=== PATIENT | male | born 1940 | race Caucasian/White ===

== ENCOUNTER 2017-02-09 19:14 | Inpatient (IN) ==
[2017-02-09] MEDS ORDERED: Melatonin 3 MG TABLET PO ONE (22:30)
[2017-02-10] MEDS: Gabapentin 100 MG CAPSULE PO SCH ×2 (04:26→23:10)
[2017-02-10] MEDS ORDERED: *HR* Morphine Sulfate SR (12 HR) 15 MG TABLET.ER PO SCH (06:00)
[2017-02-10] MEDS: *HR* OxyCODONE Immed Rel 15 MG TABLET PO PRN (08:04)
[2017-02-10] MEDS ORDERED: Ondansetron ODT 4 MG TAB.RAPDIS PO PRN (08:56)
[2017-02-10] MEDS: rifAMPin 150 MG CAPSULE PO SCH ×2 (10:13→17:23)
[2017-02-10] MEDS: Lactobacillus 1 EACH CAP.SPRINK PO SCH ×2 (10:14→23:12)
[2017-02-10] MEDS: Furosemide 40 MG TABLET PO SCH (10:14)
[2017-02-10] MEDS: *HR* Morphine Sulfate SR (12 HR) 30 MG TABLET.ER PO SCH ×2 (10:14→23:13)
[2017-02-10] MEDS: Cholecalciferol (D-3) 1,000 UNIT TABLET PO SCH (10:14)
[2017-02-10] MEDS: Chlorhexidine Rinse 15 ML MOUTHWASH MM SCH ×2 (10:37→23:13)
[2017-02-10] MEDS: Vancomycin 1,500 MG in D5% in Water 250 ML IVPB SCH (12:33)
--- NOTE | 2017-02-10 17:15 | Internal Med History&Physical ---
Date of Encounter: 02/10/17 Time of Encounter: 16:35 Assessment and Plan (1) HCAP (healthcare-associated pneumonia) Current visit: No Status: Acute We will continue antibiotics and lactobacillus ordered at [facility] discharge. (2) Peripheral neuropathy Current visit: No Status: Suspected Etiology not known. B12 and TSH levels were normal Qualifiers: Peripheral neuropathy type: polyneuropathy, unspecified Qualified Code(s): G62.9 - Polyneuropathy, unspecified (3) Gout Current visit: No Status: Chronic Will give prednisone and check uric acid level in a.m. 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 Qualifiers: Atrial fibrillation type: chronic Qualified Code(s): I48.2 - Chronic atrial fibrillation Internal Medicine - H&P: HPI Chief complaint: Pneumonia Admitted From: Hospital to Hospital Transfer Plans for Post Hospital Care: Home History of present illness: Mr. Scales is a 76 year old male who was hospitalized at [facility] February 05- for HCAP. He was treated with broad-spectrum antibiotics and discharged on oral rifampin and Levaquin with IV vancomycin. He had documented staphylococcal epidermidis bacteremia on blood cultures from 01/21/2017. He was discharged to [facility] swing bed to continue antibiotics including IV vancomycin for 14 additional days. He denies previous episodes of pneumonia. He states he is a lifelong nonsmoker and has no known chronic lung disease. Past Med Surg Social Fam HX - Past Medical History Medical history: aortic aneurysm, atrial fibrillation, cancer, coronary artery disease, hyperlipidemia, hypertension, peripheral artery disease, valvular heart disease, other Psychiatric history: no psych history - Past Surgical History Surgical History: cholecystectomy, coronary bypass (CABG), heart valve replacement - Social History Smoking Status: Never smoker Smokeless Tobacco Status: No Alcohol use: none Drug use: none - Family History Mother Living Status: Hx Family Cardiac Disorders: Yes Hx Family Respiratory Disorders: No Hx Family Cancer: Yes Hx Family GI Disorders: No Hx Family Endocrine Disorder: No Hx Family Neuromuscular Disorders: Yes Hx Family Neurologic Disorders: No Hx Family HEENT Disorders: No Hx Family Autoimmune Disorders: No Father Living Status: Hx Family Cardiac Disorders: Yes Hx Family Respiratory Disorders: No Hx Family Cancer: No Hx Family GI Disorders: No Hx Family Endocrine Disorder: No Hx Family Neuromuscular Disorders: No Hx Family Neurologic Disorders: No Hx Family HEENT Disorders: No Hx Family Autoimmune Disorders: No Internal Medicine - H&P: Meds Multivitamin/Iron/Folic Acid [Centrum Complete Multivit Tab] 1 each PO DAILY 05/16 [History] Ergocalciferol (VITAMIN D2) [Vitamin D2 (50,000 UNIT)] 50,000 unit PO MO [History] Melatonin 10 mg PO HS 11/26/15 [History] Mirtazapine 7.5 mg PO HS 11/26/15 [History] Omeprazole [PriLOSEC] 20 mg PO DAILY 11/26/15 [History] Allopurinol [Zyloprim 100 MG] 100 mg PO BID 10/31/16 [History] Furosemide [Lasix] 40 mg PO DAILY #30 tablet 12/26/16 [Rx] Ondansetron [Zofran] 4 mg PO Q8HR PRN #90 tablet 12/26/16 [Rx] Calcium Carbonate [Calcium] 600 mg PO DAILY 01/01/17 [History] Carvedilol 3.125 mg PO BID 01/01/17 [History] Aminocaproic Acid [Amicar] 250 mg PO Q8H PRN #200 solution 01/09/17 [Rx] Chlorhexidine Gluconate [Peridex] 10 ml MM DAILY #118 mouthwash 01/09/17 [Rx] Bisacodyl [Dulcolax] 10 mg PO HS PRN tab 02/02/17 [Rx] Vancomycin [Vancocin] 1 each IVPB RPHPROT vial 02/02/17 [Rx] rifAMPin [Rifadin] 300 mg PO BIDAC 14 Days 02/02/17 [Rx] Lidocaine/Prilocaine CREAM [Emla] 1 appl TP ONCE PRN 02/05/17 [History] Polyethylene Glycol 3350 [MiraLAX] 17 gm PO DAILY PRN 02/05/17 [History] Gabapentin [Neurontin] 100 mg PO HS #14 cap 02/09/17 [Rx] Lactobacillus [Culturelle] 1 each PO BID #0 02/09/17 [Rx] Lactulose [Enulose] 10 gm PO BID PRN #0 02/09/17 [Rx] Morphine Sulfate SR (12 HR) [MS Contin] 1 tab PO Q12HR #30 tab 02/09/17 [Rx] OxyCODONE Immed Rel [Roxicodone 15 MG] 15 mg PO Q4H PRN #60 tablet 02/09/17 [Rx] Vancomycin HCl in Dextrose 5 % [Vancomycin 1.5 Gram/250 ml-D5w] 1.5 gm IV DAILY #14 plast..bag 02/09/17 [Rx] levoFLOXacin [Levaquin] 750 mg PO Q48H 10 Days 02/09/17 [Rx] Allergies citalopram Adverse Reaction (Verified 02/05/17 15:37) Nausea codeine Adverse Reaction (Verified 02/05/17 15:37) See Comments Cardiac problems per . Ntchzeh-Qfg-Jad Reductase Inhibitor [Statins] Adverse Reaction (Verified 15:37) See Comments RA symptoms per . All Systems PM: A 10-system review of systems was performed and is negative for pertinent findings except as documented above in the HPI. Review of systems: Gen.: He states his weight has decreased approximately 10 pounds in the past year Cardiovascular: He denies hypertension RI heart failure angina DVT or pulmonary embolus. He states he has had aortic valve replacement. He has chronic atrial fibrillation but is not on OAC because of pancytopenia from MDS. Respiratory: As per history of present illness GI: Denies disorders of his liver gallbladder or exocrine pancreas : Denies hematuria dysuria or kidney stones. He states had left nephrectomy approximately one year ago. Neurologic: He denies large distribution strokes or seizures. He has a diagnosis of peripheral neuropathy but does not know the etiology. Endocrine: He denies diabetes or thyroid disease or hyperlipidemia Hematology/oncology: He was diagnosed with myelodysplastic syndrome earlier this year. He denies internal malignancies. He has pancytopenia from the MDS. Psychiatric: He denies anxiety depression or other mental health issues Musk skeletal: He has gout. He denies other bone joint or muscle disorders - Constitutional Vitals: Temp Pulse Resp BP Pulse Ox 99.1 F 87 16 126/75 93 02/10/17 06:37 02/10/17 06:37 02/10/17 06:37 02/10/17 06:37 02/10/17 06:37 Exam: Gen.: He is a well-developed well-nourished male lying in bed who appears in no acute distress. He denies pain or dyspnea HEENT: Head is atraumatic and normocephalic. Eyes: EOMI. There is no scleral icterus. Mouth: Mucosa is moist. Neck: Supple and nontender. There is no thyromegaly or adenopathy noted. Heart: Irregularly irregular with rate approximately 84/m. No murmurs or gallops are heard Lungs: No wheezes or crackles heard. Abdomen: There is mild tenderness to palpation. No masses or guarding are noted. Extremities: He has significant tenderness of the right first MTP joint and slight tenderness on the left first MTP joint. There is erythema and slight edema of the first MTP joints bilaterally. He has minimal DJD changes of his hands. There is no cyanosis edema or clubbing noted. Dorsalis pedis and posttibial pulses are trace to 1+ palpable bilaterally. Neurologic: Mental status: He is talkative and seems to be a fair to good historian. He does not remember some details of his history. Cranial nerves: Smile is symmetric. Forehead wrinkles bilaterally. Tongue protrudes midline. EOMI. Motor: There is no pronator drift. Cerebellar: Fair to nose is intact bilaterally. Skin: Warm and dry
[2017-02-10] MEDS: predniSONE 20 MG TABLET PO SCH (18:44)
[2017-02-10] MEDS: Melatonin 3 MG TABLET PO SCH (23:10)
[2017-02-10] MEDS: Mirtazapine 15 MG TABLET PO SCH (23:11)
[2017-02-11] MEDS: rifAMPin 150 MG CAPSULE PO SCH ×2 (07:20→21:06)
[2017-02-11] MEDS: predniSONE 20 MG TABLET PO SCH ×2 (08:09→21:00)
[2017-02-11] MEDS ORDERED: levoFLOXacin 500 MG TABLET PO SCH (09:00)
--- NOTE | 2017-02-11 10:23 | Internal Med Progress Note ---
Date of Encounter: 02/11/17 Time of Encounter: 10:15 - Assessment and plan (1) HCAP (healthcare-associated pneumonia) Current Visit: No Status: Acute Assessment and plan: February 11. Continue antibiotics and lactobacillus. (2) Peripheral neuropathy Current Visit: No Status: Suspected Assessment and plan: February 11. Etiology uncertain. Continue gabapentin Qualifiers: Peripheral neuropathy type: polyneuropathy, unspecified Qualified Code(s): G62.9 - Polyneuropathy, unspecified (3) Gout Current Visit: No Status: Chronic Assessment and plan: February 11. Uric acid level pending. Continue prednisone and allopurinol. 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 As per oncologist (5) Atrial fibrillation Current Visit: No Status: Chronic Assessment and plan: February 11. Observe without medication due to pancytopenia from MDS. Qualifiers: Atrial fibrillation type: chronic Qualified Code(s): I48.2 - Chronic atrial fibrillation - Subjective Interval history: February 11. He has no new complaints. - Constitutional Vitals: Temp Pulse Resp BP Pulse Ox 99.2 F 89 18 125/78 96 02/11/17 07:36 02/11/17 07:36 02/11/17 07:36 02/11/17 07:36 02/11/17 07:36 Exam: He is resting comfortably in bed. There is significantly less tenderness on movement of the right first toe. I reviewed his medications and lab results. Consult Discharge Plan - Plan Referrals: Michael Solis MD [Primary Care Provider] - 1 week
[2017-02-11] MEDS: Lactobacillus 1 EACH CAP.SPRINK PO SCH ×2 (10:28→20:58)
[2017-02-11] MEDS: Chlorhexidine Rinse 15 ML MOUTHWASH MM SCH ×2 (10:28→21:02)
[2017-02-11] MEDS: levoFLOXacin 500 MG TABLET PO SCH (10:29)
[2017-02-11] MEDS: Furosemide 40 MG TABLET PO SCH (10:29)
[2017-02-11] MEDS: Cholecalciferol (D-3) 1,000 UNIT TABLET PO SCH (10:30)
[2017-02-11] MEDS: *HR* Morphine Sulfate SR (12 HR) 30 MG TABLET.ER PO SCH ×3 (10:30→23:54)
[2017-02-11] MEDS: Vancomycin 1,500 MG in D5% in Water 250 ML IVPB SCH (11:05)
[2017-02-11] MEDS: Melatonin 3 MG TABLET PO SCH (20:59)
[2017-02-11] MEDS: Gabapentin 100 MG CAPSULE PO SCH (21:00)
[2017-02-11] MEDS: Mirtazapine 15 MG TABLET PO SCH (21:01)
[2017-02-12] MEDS: rifAMPin 150 MG CAPSULE PO SCH ×2 (08:41→18:13)
[2017-02-12] MEDS: predniSONE 20 MG TABLET PO SCH ×2 (10:11→18:13)
[2017-02-12] MEDS: Furosemide 40 MG TABLET PO SCH (10:11)
[2017-02-12] MEDS: Lactobacillus 1 EACH CAP.SPRINK PO SCH ×2 (10:11→21:50)
[2017-02-12] MEDS: levoFLOXacin 500 MG TABLET PO SCH (10:12)
[2017-02-12] MEDS: Cholecalciferol (D-3) 1,000 UNIT TABLET PO SCH (10:12)
[2017-02-12] MEDS: Chlorhexidine Rinse 15 ML MOUTHWASH MM SCH ×2 (10:16→21:59)
[2017-02-12] MEDS: *HR* Morphine Sulfate SR (12 HR) 30 MG TABLET.ER PO SCH ×2 (11:00→21:53)
[2017-02-12] MEDS: Vancomycin 1,500 MG in D5% in Water 250 ML IVPB SCH (11:03)
[2017-02-12] MEDS: Melatonin 3 MG TABLET PO SCH (21:49)
[2017-02-12] MEDS: Mirtazapine 15 MG TABLET PO SCH (21:50)
[2017-02-12] MEDS: Gabapentin 100 MG CAPSULE PO SCH (21:50)
[2017-02-13] MEDS: predniSONE 20 MG TABLET PO SCH (08:07)
[2017-02-13] MEDS: levoFLOXacin 500 MG TABLET PO SCH (08:07)
[2017-02-13] MEDS: Cholecalciferol (D-3) 1,000 UNIT TABLET PO SCH (08:08)
[2017-02-13] MEDS: Lactobacillus 1 EACH CAP.SPRINK PO SCH ×2 (08:08→20:19)
[2017-02-13] MEDS: Furosemide 40 MG TABLET PO SCH (08:08)
[2017-02-13] MEDS: Chlorhexidine Rinse 15 ML MOUTHWASH MM SCH ×2 (08:08→20:19)
[2017-02-13] MEDS: *HR* Morphine Sulfate SR (12 HR) 30 MG TABLET.ER PO SCH ×2 (08:08→20:19)
[2017-02-13] MEDS: rifAMPin 150 MG CAPSULE PO SCH ×2 (08:09→16:59)
--- NOTE | 2017-02-13 10:53 | Internal Med Progress Note ---
Date of Encounter: 02/13/17 Time of Encounter: 10:40 - Assessment and plan (1) HCAP (healthcare-associated pneumonia) Current Visit: No Status: Acute Assessment and plan: February 11. Continue antibiotics and lactobacillus. February 13. Continue antibiotics and lactobacillus. He can discuss with oncology at the February 15 visit if vancomycin (and rifampin) should be continued for 14 days as was indicated at the time of discharge. Levaquin was ordered for 10 days. (2) Peripheral neuropathy Current Visit: No Status: Suspected Assessment and plan: February 11. Etiology uncertain. Continue gabapentin Qualifiers: Peripheral neuropathy type: polyneuropathy, unspecified Qualified Code(s): G62.9 - Polyneuropathy, unspecified (3) Gout Current Visit: No Status: Chronic Assessment and plan: February 11. Uric acid level pending. Continue prednisone and allopurinol. February 13. Uric acid level was normal at 5.1. Continue allopurinol. Will decrease prednisone. 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 As per oncologist (5) Atrial fibrillation Current Visit: No Status: Chronic Assessment and plan: February 11. Observe without medication due to pancytopenia from MDS. Qualifiers: Atrial fibrillation type: chronic Qualified Code(s): I48.2 - Chronic atrial fibrillation - Subjective Interval history: February 11. He has no new complaints. February 13. He has no new complaints. - Constitutional Vitals: Temp Pulse Resp BP Pulse Ox 98.3 F 88 18 103/64 98 02/13/17 07:40 02/13/17 07:40 02/13/17 07:40 02/13/17 07:40 02/13/17 07:40 Exam: He is resting comfortably in bed and appears in no acute distress. His affect is bright and cheerful. I reviewed his medications and lab results. Consult Discharge Plan - Plan Referrals: Michael Solis MD [Primary Care Provider] - 1 week
[2017-02-13] MEDS: Vancomycin 1,500 MG in D5% in Water 250 ML IVPB SCH (11:41)
[2017-02-13] MEDS: predniSONE 10 MG TABLET PO SCH (16:59)
[2017-02-13] MEDS: Mirtazapine 15 MG TABLET PO SCH (20:18)
[2017-02-13] MEDS: Melatonin 3 MG TABLET PO SCH (20:18)
[2017-02-13] MEDS: Gabapentin 100 MG CAPSULE PO SCH (20:19)
[2017-02-14 05:51] LABS: Alanine Aminotransferase 13 Units/L (0-55); Albumin 2.8 g/dL (3.5-5.0); Albumin/Globulin Ratio 0.8 (1.1-2.2); Alkaline Phosphatase 86 Units/L (38-126); Aspartate Amino Transferase 18 Units/L (5-34); BUN/Creatinine Ratio 15 (6-26); Bilirubin,Total 1.3 mg/dL (0.2-1.2); Blood Urea Nitrogen 17 mg/dL (8-26); Calcium 9.1 mg/dL (8.6-10.8); Carbon Dioxide 30 mEq/L (19-29); Chloride 98 mEq/L (98-109); Globulin 3.3 g/dL (2.4-3.5); Glucose 97 mg/dL (70-99); Osmolality,Calculated 289 (280-300); Potassium 3.6 mEq/L (3.5-4.5); Sodium 139 mEq/L (136-145); Total Protein 6.1 g/dL (6.0-8.3); eGFR For African Americans > 60 (> 60); eGFR For Non-African Americans > 60 (> 60)
[2017-02-14 07:06] LABS: Hematocrit 22.4 % (37.5-50.1); Hemoglobin 7.4 g/dL (12.9-16.9); Mean Corpuscular Hemoglobin 28.7 pg (28.0-33.3); Mean Corpuscular Volume 86.8 fL (83.0-100.0); Mean Platelet Volume 10.4 fL (9.4-12.4); Red Blood Count 2.58 M/mcL (4.19-5.50); Red Cell Distribution Width 16.1 % (11.5-14.5)
[2017-02-14 07:15] LABS: Platelet Count 56 K/mcL (140-400)
[2017-02-14 07:34] LABS: Lymphocytes # 1.1 K/mcL (0.6-4.6); Monocytes # 0.1 K/mcL (0.0-1.3); Neutrophils # 0.5 K/mcL (1.6-8.9)
[2017-02-14 07:35] LABS: Anisocytosis 1+ (Not Present); Platelet Estimate Increased (Normal)
[2017-02-14] MEDS: Cholecalciferol (D-3) 1,000 UNIT TABLET PO SCH (07:58)
[2017-02-14] MEDS: rifAMPin 150 MG CAPSULE PO SCH ×2 (07:58→17:28)
[2017-02-14] MEDS: Lactobacillus 1 EACH CAP.SPRINK PO SCH ×2 (07:59→20:47)
[2017-02-14] MEDS: predniSONE 10 MG TABLET PO SCH ×2 (07:59→17:28)
[2017-02-14] MEDS: Furosemide 40 MG TABLET PO SCH (07:59)
[2017-02-14] MEDS: Chlorhexidine Rinse 15 ML MOUTHWASH MM SCH ×2 (07:59→20:48)
[2017-02-14] MEDS: levoFLOXacin 500 MG TABLET PO SCH (07:59)
[2017-02-14] MEDS: *HR* Morphine Sulfate SR (12 HR) 30 MG TABLET.ER PO SCH ×2 (08:48→20:47)
[2017-02-14] MEDS: Vancomycin 1,500 MG in D5% in Water 250 ML IVPB SCH (11:24)
[2017-02-14 12:23] LABS: Albumin 2.8 g/dL (3.5-5.0); Albumin/Globulin Ratio 0.8 (1.1-2.2); Bilirubin,Direct 0.8 mg/dL (0.0-0.5); Bilirubin,Indirect 0.4 mg/dL (0.0-1.2); Bilirubin,Total 1.2 mg/dL (0.2-1.2); Globulin 3.3 g/dL (2.4-3.5); Total Protein 6.1 g/dL (6.0-8.3)
[2017-02-14] MEDS: Gabapentin 100 MG CAPSULE PO SCH (20:47)
[2017-02-14] MEDS: Mirtazapine 15 MG TABLET PO SCH (20:47)
[2017-02-14] MEDS: Melatonin 3 MG TABLET PO SCH (20:47)
[2017-02-15] MEDS: rifAMPin 150 MG CAPSULE PO SCH ×2 (05:38→16:38)
[2017-02-15] MEDS: Lactobacillus 1 EACH CAP.SPRINK PO SCH ×2 (07:50→20:24)
[2017-02-15] MEDS: *HR* Morphine Sulfate SR (12 HR) 30 MG TABLET.ER PO SCH ×2 (08:06→20:25)
[2017-02-15] MEDS: levoFLOXacin 500 MG TABLET PO SCH (08:07)
[2017-02-15] MEDS: predniSONE 10 MG TABLET PO SCH ×2 (08:08→16:38)
[2017-02-15] MEDS: Chlorhexidine Rinse 15 ML MOUTHWASH MM SCH ×2 (08:09→20:21)
[2017-02-15] MEDS: Cholecalciferol (D-3) 1,000 UNIT TABLET PO SCH (08:10)
[2017-02-15] MEDS: Furosemide 40 MG TABLET PO SCH (08:19)
[2017-02-15] MEDS: Vancomycin 1,500 MG in D5% in Water 250 ML IVPB SCH (12:43)
[2017-02-15] MEDS: *HR* OxyCODONE Immed Rel 15 MG TABLET PO PRN (14:19)
[2017-02-15] MEDS: Gabapentin 100 MG CAPSULE PO SCH (20:24)
[2017-02-15] MEDS: Mirtazapine 15 MG TABLET PO SCH (20:24)
[2017-02-15] MEDS: Melatonin 3 MG TABLET PO SCH (20:25)
[2017-02-16] MEDS: predniSONE 10 MG TABLET PO SCH ×2 (07:43→16:55)
[2017-02-16] MEDS: Lactobacillus 1 EACH CAP.SPRINK PO SCH ×2 (07:43→21:38)
[2017-02-16] MEDS: levoFLOXacin 500 MG TABLET PO SCH (07:43)
[2017-02-16] MEDS: Cholecalciferol (D-3) 1,000 UNIT TABLET PO SCH (07:44)
[2017-02-16] MEDS: Chlorhexidine Rinse 15 ML MOUTHWASH MM SCH ×2 (07:45→21:38)
[2017-02-16] MEDS: rifAMPin 150 MG CAPSULE PO SCH ×2 (07:45→16:56)
[2017-02-16] MEDS: Furosemide 40 MG TABLET PO SCH (07:46)
[2017-02-16] MEDS: *HR* Morphine Sulfate SR (12 HR) 30 MG TABLET.ER PO SCH ×2 (07:46→21:39)
--- NOTE | 2017-02-16 14:53 | Internal Med Progress Note ---
Date of Encounter: 02/16/17 Time of Encounter: 14:40 - Assessment and plan (1) HCAP (healthcare-associated pneumonia) Current Visit: No Status: Acute Assessment and plan: February 11. Continue antibiotics and lactobacillus. February 13. Continue antibiotics and lactobacillus. He can discuss with oncology at the February 15 visit if vancomycin (and rifampin) should be continued for 14 days as was indicated at the time of discharge. Levaquin was ordered for 10 days. February 16. Continue IV antibiotics and lactobacillus. (2) Peripheral neuropathy Current Visit: No Status: Suspected Assessment and plan: February 11. Etiology uncertain. Continue gabapentin Qualifiers: Peripheral neuropathy type: polyneuropathy, unspecified Qualified Code(s): G62.9 - Polyneuropathy, unspecified (3) Gout Current Visit: No Status: Chronic Assessment and plan: February 11. Uric acid level pending. Continue prednisone and allopurinol. February 13. Uric acid level was normal at 5.1. Continue allopurinol. Will decrease prednisone. 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 As per oncologist (5) Atrial fibrillation Current Visit: No Status: Chronic Assessment and plan: February 11. Observe without medication due to pancytopenia from MDS. 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 Antibiotics will continue through 03/12/2017. - Subjective Interval history: February 11. He has no new complaints. February 13. He has no new complaints. February 16. He has no new complaints. He was seen by ID staff yesterday and oncology today at [facility] for scheduled follow-up visits. Nursing staff was informed from ID personnel that there was concern for endocarditis due to 2/2 blood cultures several weeks ago positive for staph epidermidis. It was felt he should complete a 6 week course of IV antibiotics. His states he had a bone marrow exam with results discussed today showing progression of MDS. - Constitutional Vitals: Temp Pulse Resp BP Pulse Ox 99.0 F 89 20 125/76 94 02/16/17 06:49 02/16/17 08:37 02/16/17 08:37 02/16/17 08:37 02/16/17 08:37 Exam: He is sitting comfortably in a wheelchair having just returned from his oncology appointment. I spoke at some length with him and his about treatment plans. Internal Medicine: Result - Labs CBC & Chem 7: 02/14/17 04:45 02/14/17 04:45 Consult Discharge Plan - Plan Referrals: Michael Solis MD [Primary Care Provider] - 1 week
[2017-02-16] MEDS: Vancomycin 1,500 MG in D5% in Water 250 ML IVPB SCH (16:21)
[2017-02-16] MEDS: *HR* OxyCODONE Immed Rel 15 MG TABLET PO PRN (16:55)
[2017-02-16] MEDS ORDERED: Vancomycin 1,250 MG in D5% in Water 250 ML IVPB SCH (17:00)
[2017-02-16] MEDS: Melatonin 3 MG TABLET PO SCH (21:38)
[2017-02-16] MEDS: Gabapentin 100 MG CAPSULE PO SCH (21:38)
[2017-02-16] MEDS: Mirtazapine 15 MG TABLET PO SCH (21:39)
[2017-02-16] MEDS: Vancomycin 1,250 MG in D5% in Water 250 ML IVPB SCH (22:12)
[2017-02-17] MEDS: Chlorhexidine Rinse 15 ML MOUTHWASH MM SCH ×2 (08:13→20:18)
[2017-02-17] MEDS: Furosemide 40 MG TABLET PO SCH (08:14)
[2017-02-17] MEDS: rifAMPin 150 MG CAPSULE PO SCH ×2 (08:14→20:14)
[2017-02-17] MEDS: levoFLOXacin 500 MG TABLET PO SCH (08:14)
[2017-02-17] MEDS: predniSONE 10 MG TABLET PO SCH ×2 (08:14→17:33)
[2017-02-17] MEDS: Lactobacillus 1 EACH CAP.SPRINK PO SCH ×2 (08:14→20:13)
[2017-02-17] MEDS: Cholecalciferol (D-3) 1,000 UNIT TABLET PO SCH (08:14)
[2017-02-17] MEDS: *HR* Morphine Sulfate SR (12 HR) 30 MG TABLET.ER PO SCH ×2 (08:15→20:14)
[2017-02-17 13:41] LABS: eGFR For African Americans > 60 (> 60); eGFR For Non-African Americans 52 (> 60)
[2017-02-17] MEDS: Vancomycin 1,250 MG in D5% in Water 250 ML IVPB SCH (17:11)
[2017-02-17] MEDS: Gabapentin 100 MG CAPSULE PO SCH (20:13)
[2017-02-17] MEDS: Melatonin 3 MG TABLET PO SCH (20:14)
[2017-02-17] MEDS: Mirtazapine 15 MG TABLET PO SCH (20:14)
[2017-02-18] MEDS: Acetaminophen 325 MG TABLET PO PRN (06:17)
[2017-02-18 09:03] LABS: eGFR For African Americans > 60 (> 60); eGFR For Non-African Americans 50 (> 60)
[2017-02-18] MEDS: Lactobacillus 1 EACH CAP.SPRINK PO SCH ×2 (09:29→21:29)
[2017-02-18] MEDS: levoFLOXacin 500 MG TABLET PO SCH (09:30)
[2017-02-18] MEDS: Cholecalciferol (D-3) 1,000 UNIT TABLET PO SCH (09:30)
[2017-02-18] MEDS: Furosemide 40 MG TABLET PO SCH (09:30)
[2017-02-18] MEDS: *HR* Morphine Sulfate SR (12 HR) 30 MG TABLET.ER PO SCH ×2 (09:30→21:32)
[2017-02-18] MEDS: predniSONE 10 MG TABLET PO SCH ×2 (09:31→21:28)
[2017-02-18] MEDS: Chlorhexidine Rinse 15 ML MOUTHWASH MM SCH ×2 (09:34→21:33)
[2017-02-18] MEDS: Melatonin 3 MG TABLET PO SCH (21:29)
[2017-02-18] MEDS: rifAMPin 150 MG CAPSULE PO SCH (21:30)
[2017-02-18] MEDS: Gabapentin 100 MG CAPSULE PO SCH (21:30)
[2017-02-18] MEDS: Mirtazapine 15 MG TABLET PO SCH (21:31)
[2017-02-18] MEDS: Vancomycin 1,250 MG in D5% in Water 250 ML IVPB SCH (21:33)
[2017-02-19] MEDS: rifAMPin 150 MG CAPSULE PO SCH ×3 (07:48→15:44)
[2017-02-19] MEDS: levoFLOXacin 500 MG TABLET PO SCH (08:03)
[2017-02-19] MEDS: Lactobacillus 1 EACH CAP.SPRINK PO SCH ×2 (08:04→21:43)
[2017-02-19] MEDS: Cholecalciferol (D-3) 1,000 UNIT TABLET PO SCH (08:04)
[2017-02-19] MEDS: *HR* Morphine Sulfate SR (12 HR) 30 MG TABLET.ER PO SCH ×2 (08:05→21:43)
[2017-02-19] MEDS: predniSONE 10 MG TABLET PO SCH (09:59)
[2017-02-19] MEDS: Furosemide 40 MG TABLET PO SCH (09:59)
[2017-02-19] MEDS: Lactulose Oral Soln 20 GM/30 ML UDC PO PRN (10:56)
[2017-02-19] MEDS: Chlorhexidine Rinse 15 ML MOUTHWASH MM SCH ×2 (10:57→21:43)
[2017-02-19] MEDS: Sennosides/Docusate Sodium TABLET PO SCH ×2 (15:41→21:43)
--- NOTE | 2017-02-19 16:59 | Internal Med Progress Note ---
Date of Encounter: 02/19/17 Time of Encounter: 16:50 - Assessment and plan (1) HCAP (healthcare-associated pneumonia) Current Visit: No Status: Acute Assessment and plan: February 11. Continue antibiotics and lactobacillus. February 13. Continue antibiotics and lactobacillus. He can discuss with oncology at the February 15 visit if vancomycin (and rifampin) should be continued for 14 days as was indicated at the time of discharge. Levaquin was ordered for 10 days. February 16. Continue IV antibiotics and lactobacillus. (2) Peripheral neuropathy Current Visit: No Status: Suspected Assessment and plan: February 11. Etiology uncertain. Continue gabapentin Qualifiers: Peripheral neuropathy type: polyneuropathy, unspecified Qualified Code(s): G62.9 - Polyneuropathy, unspecified (3) Gout Current Visit: No Status: Chronic Assessment and plan: February 11. Uric acid level pending. Continue prednisone and allopurinol. February 13. Uric acid level was normal at 5.1. Continue allopurinol. Will decrease prednisone. February 19. He states his pain has essentially resolved. Prednisone was discontinued today. 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 As per oncologist. February 19. We will recheck labs in a.m. to see if anemia has worsened and transfusion is needed. (5) Atrial fibrillation Current Visit: No Status: Chronic Assessment and plan: February 11. Observe without medication due to pancytopenia from MDS. Qualifiers: Atrial fibrillation type: chronic Qualified Code(s): I48.2 - Chronic atrial fibrillation (6) Staphylococcus epidermidis bacteremia Current Visit: No Status: Chronic Assessment and plan: February 16. Continue rifampin, vancomycin, and Levaquin as per ID. Antibiotics will continue through 03/12/2017. - Subjective Interval history: February 11. He has no new complaints. February 13. He has no new complaints. February 16. He has no new complaints. He was seen by ID staff yesterday and oncology today at [facility] for scheduled follow-up visits. Nursing staff was informed from ID personnel that there was concern for endocarditis due to 2/2 blood cultures several weeks ago positive for staph epidermidis. It was felt he should complete a 6 week course of IV antibiotics. His states he had a bone marrow exam with results discussed today showing progression of MDS. February 19. He states he has "no energy". He denies other complaints. - Constitutional Vitals: Temp Pulse Resp BP Pulse Ox 99.0 F 92 95 97/58 97 02/19/17 07:13 02/19/17 13:19 02/19/17 13:19 02/19/17 13:19 02/19/17 13:19 Exam: He is sitting in a chair at bedside eating supper. He appears in no acute distress. His conversation is appropriate. I reviewed his medications and lab results. Internal Medicine: Result - Labs CBC & Chem 7: 02/14/17 04:45 02/18/17 08:44 Consult Discharge Plan - Plan Referrals: Michael Solis MD [Primary Care Provider] - 1 week
[2017-02-19] MEDS: Melatonin 3 MG TABLET PO SCH (21:42)
[2017-02-19] MEDS: Gabapentin 100 MG CAPSULE PO SCH (21:43)
[2017-02-19] MEDS: Mirtazapine 15 MG TABLET PO SCH (21:43)
[2017-02-19] MEDS: Vancomycin 1,250 MG in D5% in Water 250 ML IVPB SCH (23:01)
[2017-02-20 05:40] LABS: Basophils % 0.5 %; Hematocrit 20.9 % (37.5-50.1); Hemoglobin 6.8 g/dL (12.9-16.9); Immature Granulocytes % 1.4 % (0-4); Lymphocytes % 43.2 %; Mean Corpuscular HGB Conc 32.5 g/dL (31.6-35.5); Mean Corpuscular Hemoglobin 28.3 pg (28.0-33.3); Mean Corpuscular Volume 87.1 fL (83.0-100.0); Mean Platelet Volume 10.3 fL (9.4-12.4); Monocytes # 0.2 K/mcL (0.0-1.3); Monocytes % 9.5 %; Red Cell Distribution Width 16.1 % (11.5-14.5); Segmented Neutrophils % 45.4 %
[2017-02-20 05:42] LABS: Platelet Count 34 K/mcL (140-400)
[2017-02-20 06:00] LABS: BUN/Creatinine Ratio 17 (6-26); Blood Urea Nitrogen 21 mg/dL (8-26); Calcium 9.1 mg/dL (8.6-10.8); Carbon Dioxide 26 mEq/L (19-29); Chloride 100 mEq/L (98-109); Glucose 98 mg/dL (70-99); Osmolality,Calculated 287 (280-300); Potassium 4.1 mEq/L (3.5-4.5); Sodium 137 mEq/L (136-145); eGFR For African Americans > 60 (> 60); eGFR For Non-African Americans 56 (> 60)
[2017-02-20] MEDS: Sennosides/Docusate Sodium TABLET PO SCH ×2 (07:38→20:08)
[2017-02-20] MEDS: rifAMPin 150 MG CAPSULE PO SCH ×2 (07:40→17:06)
[2017-02-20] MEDS: Lactobacillus 1 EACH CAP.SPRINK PO SCH ×2 (07:41→20:08)
[2017-02-20] MEDS: *HR* Morphine Sulfate SR (12 HR) 30 MG TABLET.ER PO SCH ×2 (07:41→20:08)
[2017-02-20] MEDS: Cholecalciferol (D-3) 1,000 UNIT TABLET PO SCH (07:41)
[2017-02-20] MEDS: Chlorhexidine Rinse 15 ML MOUTHWASH MM SCH ×2 (07:43→20:09)
[2017-02-20] MEDS: Vancomycin 1,250 MG in D5% in Water 250 ML IVPB SCH (07:46)
[2017-02-20] MEDS ORDERED: 0.9 % Sodium Chloride 250 ML ONE (09:54)
[2017-02-20] MEDS: Acetaminophen 325 MG TABLET PO PRN (18:18)
[2017-02-20] MEDS: Melatonin 3 MG TABLET PO SCH (20:08)
[2017-02-20] MEDS: Gabapentin 100 MG CAPSULE PO SCH (20:08)
[2017-02-20] MEDS: Mirtazapine 15 MG TABLET PO SCH (20:09)
[2017-02-21] MEDS: Sennosides/Docusate Sodium TABLET PO SCH ×2 (08:27→20:07)
[2017-02-21] MEDS: rifAMPin 150 MG CAPSULE PO SCH ×2 (08:29→16:13)
[2017-02-21] MEDS: Lactobacillus 1 EACH CAP.SPRINK PO SCH ×2 (08:32→20:07)
[2017-02-21] MEDS: Cholecalciferol (D-3) 1,000 UNIT TABLET PO SCH (08:33)
[2017-02-21] MEDS: *HR* Morphine Sulfate SR (12 HR) 30 MG TABLET.ER PO SCH ×2 (08:35→20:07)
[2017-02-21] MEDS ORDERED: levoFLOXacin 500 MG TABLET PO SCH (09:00)
[2017-02-21] MEDS: Chlorhexidine Rinse 15 ML MOUTHWASH MM SCH ×2 (15:45→20:13)
[2017-02-21] MEDS: Lactulose Oral Soln 20 GM/30 ML UDC PO PRN (16:16)
[2017-02-21] MEDS ORDERED: Aminoglycoside Consult 1 EACH MC ONE (19:00)
[2017-02-21] MEDS: Gabapentin 100 MG CAPSULE PO SCH (20:07)
[2017-02-21] MEDS: Mirtazapine 15 MG TABLET PO SCH (20:07)
[2017-02-21] MEDS: Melatonin 3 MG TABLET PO SCH (20:07)
[2017-02-21] MEDS: Vancomycin 1,250 MG in D5% in Water 250 ML IVPB SCH (20:13)
[2017-02-22 06:43] VITALS: BP 110/68
[2017-02-22] MEDS: Lactobacillus 1 EACH CAP.SPRINK PO SCH (07:53)
[2017-02-22] MEDS: rifAMPin 150 MG CAPSULE PO SCH ×2 (07:53→16:30)
[2017-02-22] MEDS: *HR* Morphine Sulfate SR (12 HR) 30 MG TABLET.ER PO SCH (07:53)
[2017-02-22] MEDS: Cholecalciferol (D-3) 1,000 UNIT TABLET PO SCH (07:53)
[2017-02-22] MEDS: Sennosides/Docusate Sodium TABLET PO SCH (07:53)
[2017-02-22] MEDS: Chlorhexidine Rinse 15 ML MOUTHWASH MM SCH (07:54)
--- NOTE | 2017-02-22 14:31 | Discharge Summary ---
Date of Encounter: 02/22/17 Time of Encounter: 14:05 - Discharge Diagnosis (1) Staphylococcus epidermidis bacteremia Priority: Primary Status: Chronic (2) HCAP (healthcare-associated pneumonia) Priority: Secondary Status: Acute (3) Peripheral neuropathy Priority: Secondary Status: Suspected Qualifiers: Peripheral neuropathy type: polyneuropathy, unspecified Qualified Code(s): G62.9 - Polyneuropathy, unspecified (4) Gout Priority: Secondary Status: Chronic Qualifiers: Gout site: foot Gout etiology: other secondary cause Chronicity: chronic Laterality: right Presence of tophus: without tophus Qualified Code(s): M1A.4710 - Other secondary chronic gout, right ankle and foot, 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) (5) MDS (myelodysplastic syndrome) Priority: Secondary Status: Chronic (6) Atrial fibrillation Priority: Secondary Status: Chronic Qualifiers: Atrial fibrillation type: chronic Qualified Code(s): I48.2 - Chronic atrial fibrillation - Discharge Medications Prescriptions: Lactobacillus [Culturelle] 1 each PO BID #36 Levofloxacin [Levaquin] 750 mg PO Q48H #9 tablet rifAMPin [Rifadin] 300 mg PO BIDAC #72 Home Medications: Multivitamin/Iron/Folic Acid [Centrum Complete Multivit Tab] 1 each PO DAILY 05/16 [History] Melatonin 10 mg PO HS 11/26/15 [History] Mirtazapine 7.5 mg PO HS 11/26/15 [History] Omeprazole [PriLOSEC] 20 mg PO DAILY 11/26/15 [History] Allopurinol [Zyloprim 100 MG] 100 mg PO BID 10/31/16 [History] Ondansetron [Zofran] 4 mg PO Q8HR PRN #90 tablet 12/26/16 [Rx] Calcium Carbonate [Calcium] 600 mg PO DAILY 01/01/17 [History] Carvedilol 3.125 mg PO BID 01/01/17 [History] Aminocaproic Acid [Amicar] 250 mg PO Q8H PRN #200 solution 01/09/17 [Rx] Chlorhexidine Gluconate [Peridex] 10 ml MM DAILY #118 mouthwash 01/09/17 [Rx] Bisacodyl [Dulcolax] 10 mg PO HS PRN tab 02/02/17 [Rx] Polyethylene Glycol 3350 [MiraLAX] 17 gm PO DAILY PRN 02/05/17 [History] Gabapentin [Neurontin] 100 mg PO HS #14 cap 02/09/17 [Rx] Lactulose [Enulose] 10 gm PO BID PRN #0 02/09/17 [Rx] Morphine Sulfate SR (12 HR) [MS Contin] 1 tab PO Q12HR #30 tab 02/09/17 [Rx] OxyCODONE Immed Rel [Roxicodone 15 MG] 15 mg PO Q4H PRN #60 tablet 02/09/17 [Rx] Cholecalciferol (D-3) [Vitamin D] 1,000 unit PO DAILY tab 02/22/17 [Rx] Lactobacillus [Culturelle] 1 each PO BID #36 02/22/17 [Rx] Levofloxacin [Levaquin] 750 mg PO Q48H #9 tablet 02/22/17 [Rx] Vancomycin HCl in Dextrose 5 % [Vancomycin 1.5 Gram/250 ml-D5w] 1,250 mg IV Q36H #12 plast..bag 02/22/17 [Rx] levoFLOXacin [Levaquin] 750 mg PO Q48H #9 tab 02/22/17 [Rx] rifAMPin [Rifadin] 300 mg PO BIDAC #72 02/22/17 [Rx] Allergies/Adverse Reactions: 3 Allergy/AdvReac Type Severity Reaction Status Date / Time citalopram AdvReac Nausea Verified 02/05/17 15:37 codeine AdvReac See Verified 02/05/17 15:37 Comments Awewboj-Yvx-Osv Reductase AdvReac See Verified 02/05/17 15:37 Inhibitor Comments [Statins] Date of admission: 02/09/17 20:23 Primary care physician: Mike Lucas M.D. Consults: 02/09/17 22:20 Consult to Physical Therapy [CONS] Routine Comment: Evaluate, develop and implement POC Reason for Consult: REHAB 02/09/17 22:22 Consult to Occupational Therapy [CONS] Routine Comment: Evaluate, develop and implement POC Reason for Consult: rehab - Patient Status Disposition: Home Health Service Functional capacity at discharge: uses cane/walker Overall status at discharge: patient is progressing back to baseline - Discharge Instructions Follow Up With: Mike Lucas Jr, MD [Partnered Physician] - 1 week - Diet and Activity Activity: ambulate only with your walker Diet: advance to your usual diet Hospital course: Mr. Scales is a 76 year old male who was hospitalized at [facility] February 05 for HCAP. He was treated with broad-spectrum antibiotics and discharged on oral rifampin and Levaquin with IV vancomycin. He had documented staphylococcal epidermidis bacteremia on blood cultures from 01/21/2017. There was uncertain if he had endocarditis. He was discharged to [facility] swing bed to continue IV vancomycin. Initial orders were written by the [facility] discharging physician. I saw him on February 10 and performed a swing bed history and physical. He continued with Levaquin, vancomycin, and rifampin. These were tolerated well. Hemoglobin decreased to 6.8 on February 20 and he was given 1 unit of packed red blood cells transfusion. PT and OT evaluations were done with ongoing interventions. He was seen by infectious disease personnel at [facility] and it was felt best to continue his anabiotic regimen until March 12 to adequately cover for possible endocarditis. On February 22 he and his family agreed he could be discharged home and complete IV vancomycin course and oral antibiotics in the home environment. He will follow with his PCP within one week and with infectious disease as scheduled. He was treated with tapering dose of prednisone during hospitalization for what appeared to be acute gouty flare in his right first MTP joint. He was asymptomatic at time of discharge. - Time Spent with Patient Total time spent providing and/or coordinating discharge services: - Constitutional Vitals: Temp Pulse Resp BP Pulse Ox 98.8 F 71 17 110/68 96 02/22/17 06:43 02/22/17 08:24 02/22/17 08:24 02/22/17 08:24 02/22/17 08:24
--- NOTE | 2017-02-22 14:49 | Physician Discharge Referral ---
Home Health/Hosp Referral Info Transfer to: Home Health Attending Provider: Will Provider in Charge Post Discharge: PCP (Mike Lucas M.D.) - Diagnosis (1) Staphylococcus epidermidis bacteremia Priority: Primary Status: Acute (2) HCAP (healthcare-associated pneumonia) Priority: Secondary Status: Acute (3) Peripheral neuropathy Priority: Secondary Status: Chronic (4) Gout Priority: Secondary Status: Chronic (5) MDS (myelodysplastic syndrome) Priority: Secondary Status: Chronic (6) Atrial fibrillation Priority: Secondary Status: Chronic - Respiratory Orders Smoking Cessation: Smoking cessation has been advised. For more information, call the [place] Tobacco Quit Line at 9-332-HLMW-NOW. - Diet/Nutrition Diet/Nutrition Orders: Regular - Activity Activity Orders: Walker - Services Needed Following services are medically necessary services: Nursing, Home Health Aide, Physical Therapy, Occupational Therapy - Transfer Medications Prescriptions: Lactobacillus [Culturelle] 1 each PO BID #36 Levofloxacin [Levaquin] 750 mg PO Q48H #9 tablet rifAMPin [Rifadin] 300 mg PO BIDAC #72 Home Medications: Multivitamin/Iron/Folic Acid [Centrum Complete Multivit Tab] 1 each PO DAILY 05/16 [History] Melatonin 10 mg PO HS 11/26/15 [History] Mirtazapine 7.5 mg PO HS 11/26/15 [History] Omeprazole [PriLOSEC] 20 mg PO DAILY 11/26/15 [History] Allopurinol [Zyloprim 100 MG] 100 mg PO BID 10/31/16 [History] Ondansetron [Zofran] 4 mg PO Q8HR PRN #90 tablet 12/26/16 [Rx] Calcium Carbonate [Calcium] 600 mg PO DAILY 01/01/17 [History] Carvedilol 3.125 mg PO BID 01/01/17 [History] Aminocaproic Acid [Amicar] 250 mg PO Q8H PRN #200 solution 01/09/17 [Rx] Chlorhexidine Gluconate [Peridex] 10 ml MM DAILY #118 mouthwash 01/09/17 [Rx] Bisacodyl [Dulcolax] 10 mg PO HS PRN tab 02/02/17 [Rx] Polyethylene Glycol 3350 [MiraLAX] 17 gm PO DAILY PRN 02/05/17 [History] Gabapentin [Neurontin] 100 mg PO HS #14 cap 02/09/17 [Rx] Lactulose [Enulose] 10 gm PO BID PRN #0 02/09/17 [Rx] Morphine Sulfate SR (12 HR) [MS Contin] 1 tab PO Q12HR #30 tab 02/09/17 [Rx] OxyCODONE Immed Rel [Roxicodone 15 MG] 15 mg PO Q4H PRN #60 tablet 02/09/17 [Rx] Cholecalciferol (D-3) [Vitamin D] 1,000 unit PO DAILY tab 02/22/17 [Rx] Lactobacillus [Culturelle] 1 each PO BID #36 02/22/17 [Rx] Levofloxacin [Levaquin] 750 mg PO Q48H #9 tablet 02/22/17 [Rx] Vancomycin HCl in Dextrose 5 % [Vancomycin 1.5 Gram/250 ml-D5w] 1,250 mg IV Q36H #12 plast..bag 02/22/17 [Rx] levoFLOXacin [Levaquin] 750 mg PO Q48H #9 tab 02/22/17 [Rx] rifAMPin [Rifadin] 300 mg PO BIDAC #72 02/22/17 [Rx] Allergies/Adverse Reactions: 3 Allergy/AdvReac Type Severity Reaction Status Date / Time citalopram AdvReac Nausea Verified 02/05/17 15:37 codeine AdvReac See Verified 02/05/17 15:37 Comments Goddozd-Tyi-Yum Reductase AdvReac See Verified 02/05/17 15:37 Inhibitor Comments [Statins] Certification: Further, I certify that my clinical findings support that this patient is homebound (i.e. absences from home require considerable and taxing effort and are for medical reasons or tenriism services or infrequently or short duration when for other reasons) because: Homebound Reason: Leaving home requires considerable and taxing effort due to condition (Impaired ambulatory ability) Attestation: My signature below is to certify that this patient is under my care and that I, or nurse practitioner, or a physician's journeyman operator assistant working with me, has a face-to -face encounter with this patient.
== END 2017-02-22 17:25 | disposition home health service (06) | DRG 871 ==
LOC: INPPIK 20:23
PROVIDERS: ADMIT Internal Medicine; ATTEND Internal Medicine